=== PATIENT | male | born 1965 | race Caucasian/White ===

== ENCOUNTER 2017-01-06 05:32 | Inpatient (IN) | payer BC ==
[~2017-01-06] VITALS: Ht 182.9 cm; Wt 93.2 kg
[2017-01-06] VITALS (20 sets, daily range): BP systolic 92–125; BP diastolic 34–70; Ht 182.9 cm; Wt 93.2 kg
[2017-01-06 05:45] LABS: BASOPHILS 0.1 % (0-2); EOSINOPHILS 0.3 % (0-7); HEMATOCRIT 42.4 % (42.0-54.0); HEMOGLOBIN 13.8 g/dL (13.5-17.5); IMMATURE GRANULOCYTES 0.5 % (0-5); MCH 34.4 pg (26.0-34.0); MCHC 32.5 g/dL (31.0-37.0); MCV 105.7 fL (80.0-100.0); MEAN PLATELET VOLUME 9.4 fL (7.4-10.4); NEUTROPHILS 81.1 % (40-80); PLATELET COUNT 200 10x3/uL (130-400); RBC 4.01 10x6/uL (4.20-6.10); RDW 14.1 % (11.5-14.5); WBC 18.2 10x3/uL (4.8-10.8)
[2017-01-06 05:55] LABS: INR 1.14 (0.85-1.17); PROTIME 14.3 SECONDS (11.6-15.0)
[2017-01-06 05:56] LABS: ANION GAP 9.9 mmol/L (8-16); BILIRUBIN - TOTAL 0.75 mg/dL (0.2-1.3); CALCIUM 8.5 mg/dL (8.5-10.1); CARBON DIOXIDE 33.6 mmol/L (21.0-32.0); CREATININE - SERUM 2.4 mg/dL (0.6-1.3); POTASSIUM - SERUM 5.5 mmol/L (3.5-5.1); PROTEIN - SERUM 6.2 g/dL (6.4-8.2)
--- NOTE | 2017-01-06 07:56 | NUR ---
AROUND 733, BEFORE MOVING PATIENT OR BED, RIGHT GROIN DRESSING BLEEDING NOTED, HEMATOMA BEGAN TO FORM, PRESSURE HELD, DR CHOWDHURY CALLED BACK TO ROOM. REPREP RIGHT GROIN WITH CHLORAPREP X2 BY LAMIN FREDERICK, REDRAPED, BRENDON REMOVED.
--- NOTE | 2017-01-06 08:17 | NUR ---
2ND COUNT LAPS, NEEDLES BLADES, GUILLERMO ARIAS ANGELA RN WILSON, BRUCE COUNTS CORRECT.
--- NOTE | 2017-01-06 09:00 | NUR ---
0845 PT ARRIVED TO ROOM VIA BED. AT SIDE. PT AROUSES TO VOICE. ON 10L SIMPLE MASK. 100% O2. RESP 12. BP 111/66, HR 62. TEMP 34.2 VIA WILSON. WARMING BLANKET PLACED ON PATIENT. BILATERAL PEDAL PULSES VIA DOPPLER. BILATERAL GROIN DRESSINGS INTACT. CLEAN AND DRY. TISSUE SOFT. CRITICORE WILSON CATHETER. CVP 8
--- NOTE | 2017-01-06 09:10 | NUR ---
DR CHOWDHURY IN TO CHECK ON PATIENT. SPEAKING WITH AT THIS TIME. SHE ASKED TO BE ABLE TO STAY IN ROOM WITH PATIENT. DR CHOWDHURY SAID "NO"
[2017-01-06] MEDS ORDERED: TEMAZEPAM30 MG PO (09:21)
[2017-01-06] MEDS ORDERED: AMBIEN10 MG PO (09:21)
[2017-01-06] MEDS ORDERED: XANAX1 MG PO (09:21)
[2017-01-06 09:30] LABS: APTT 23.2 SECONDS (22.8-39.4)
[2017-01-06 09:35] LABS: HEMATOCRIT 35.9 % (42.0-54.0); HEMOGLOBIN 11.9 g/dL (13.5-17.5)
--- NOTE | 2017-01-06 10:16 | NUR ---
PT WAKING AND MORE CONVERSANT. ASKING WHERE HE IS AND WHY HE IS HERE. C/O PAIN IN GROIN SITES. PT NOW ON 2L O2 AND SATS 100%. VSS
--- NOTE | 2017-01-06 10:27 | NUR ---
PT DOES NOT HAVE PCP. SEES JB SAAVEDRA AT [facility].
[2017-01-06 11:18] LABS: UDS - AMPHET POSITIVE QUAL (NEGATIVE); UDS - BARB NEGATIVE QUAL (NEGATIVE); UDS - BENZO POSITIVE QUAL (NEGATIVE); UDS - COCAINE NEGATIVE QUAL (NEGATIVE); UDS - METH NEGATIVE QUAL (NEGATIVE); UDS - OPIATE NEGATIVE QUAL (NEGATIVE); UDS - PCP NEGATIVE QUAL (NEGATIVE); UDS - THC NEGATIVE QUAL (NEGATIVE)
--- NOTE | 2017-01-06 11:46 | NUR ---
SPOKE WITH DR. MARIA OVER THE TELEPHONE REGARDING CONSULT. HE IS AWARE AND WILL ROUND LATER TODAY.
--- NOTE | 2017-01-06 12:05 | NUR ---
AT BEDSIDE. PT IS AWAKE AT THIS TIME. HAD BEEN SLEEPING. AWAKENED TO HER PRESENCE. HE WAS AWARE SHE HAD BEEN HERE EARLIER AND KNEW SHE WOULD BE COMING AT NOON VISITATION. WAS LOOKING FORWARD TO HER ARRIVAL. HE HAS BEEN SLEEPING ON AND OFF ALL MORNING.
--- NOTE | 2017-01-06 12:25 | NUR ---
PT BECOMING AGITATED AND CUSSING. WANTS HIS TO BE ABLE TO STAY WITH HIM AND NOT FOLLOW VISITATION HOURS. ASKED FOR PHONE TO CALL ANTONI IVIS. NO PHONE IN ROOM. DENIES HAVING PHONE WITH HER. HE IS ALSO UPSET THE JB SAAVEDRA CANNOT COME BACK TO VISIT HIM.
--- NOTE | 2017-01-06 12:34 | NUR ---
BILATERAL GROIN SITES DRESSINGS INTACT. NO BLEEDING, NO HEMATOMA. BILATERAL PEDAL PULSES ARE PALPABLE AT THIS TIME. LEFT SIDE BOUNDING, RIGHT SIDE WEAK.
--- NOTE | 2017-01-06 12:57 | NUR ---
DR MARIA IN TO SEE PATIENT
[2017-01-06 14:12] LABS: BASOPHILS 0.1 % (0-2); EOSINOPHILS 0 % (0-7); HEMATOCRIT 33.2 % (42.0-54.0); HEMOGLOBIN 10.9 g/dL (13.5-17.5); IMMATURE GRANULOCYTES 0.4 % (0-5); LYMPHOCYTES 8.7 % (15-50); MCH 32.8 pg (26.0-34.0); MCHC 32.8 g/dL (31.0-37.0); MEAN PLATELET VOLUME 9.4 fL (7.4-10.4); NEUTROPHILS 81.8 % (40-80); RBC 3.32 10x6/uL (4.20-6.10); RDW 18.2 % (11.5-14.5); WBC 19.1 10x3/uL (4.8-10.8)
--- NOTE | 2017-01-06 14:14 | HP ---
PATIENT: MADELIN LARES MEDICAL RECORD: [id number] ACCOUNT: [id number] LOCATION:[facility] D.CV04 : 65 ADMISSION DATE: 01/06/17 HISTORY AND PHYSICAL EXAMINATION DATE OF ADMISSION: 01/06/2017 ADMITTING PHYSICIAN: Tim Chowdhury MD CHIEF COMPLAINT: Self-inflicted femoral stab wounds. HISTORY OF PRESENT ILLNESS: A 51-year-old male who was brought emergently to the ER morning by EMS. He by report had bilateral inflicted femoral stab wounds. He called a friend around 4:30 this morning who arrived at his apartment and found him lethargic and called 911. He was brought to the Emergency Room. Pressure was held and he was started on massive transfusion protocol. At this time, he was taken emergently to the operating room. PAST MEDICAL HISTORY: Unknown. PAST SURGICAL HISTORY: Unknown. ALLERGIES: Unknown. MEDICATIONS: Unknown. FAMILY AND SOCIAL HISTORY: Both unknown. REVIEW OF SYSTEMS: A 12-point review of systems was unobtainable secondary to the patient's responsiveness. PHYSICAL EXAMINATION: GENERAL: He was markedly hypotensive. CONSTITUTIONAL: Marked distress, he only able to moan. EYES: Extraocular muscles were intact. EARS, NOSE AND THROAT: Normal dentition. Conjunctivae are pale. Mucous membranes dry. CARDIOVASCULAR: Normal sinus rhythm. PULMONARY: Clear to auscultation bilaterally. ABDOMEN: Soft, nontender and nondistended. SKIN: Cool and flushed. EXTREMITIES: He has palpable femoral, popliteal and dorsalis pedis is on the left lower extremity. Right lower extremity has dopplerable signals at the posterior tibial and dorsalis pedis on the right as well as popliteal, open bleeding wounds of the bilateral groins. LABORATORY DATA: Obtained during the physical examination. IMPRESSION: A 51-year-old male in hemorrhagic shock with bilateral self-inflicted femoral groin wounds. PLAN: 1. Massive transfusion protocol. 2. Admit to ICU. 3. Emergent OR exploration and repair of femoral vessels, IV fluid HISTORY AND PHYSICAL [id number] MADELIN LARES PRABHJOT resuscitation, IV narcotics for pain control. TRANSINT:[id number] Voice Confirmation ID: [id number] DOCUMENT ID: [id number] TIM CHOWDHURY MD at 1414 CC: [id number] DICTATION DATE: 01/06/17 0840 TRUER PINION AND WHEEL: 01/06/17 1222 ADM IN [facility] [address] [id number]
[2017-01-06 14:20] LABS: PLATELET COUNT 147 10x3/uL (130-400)
[2017-01-06 14:25] LABS: ANION GAP 5.9 mmol/L (8-16); CARBON DIOXIDE 30.5 mmol/L (21.0-32.0); CREATININE - SERUM 1.7 mg/dL (0.6-1.3); MAGNESIUM - SERUM 1.8 mg/dL (1.8-2.4); POTASSIUM - SERUM 4.4 mmol/L (3.5-5.1)
[2017-01-06 14:27] LABS: CALCIUM 6.7 mg/dL (8.5-10.1)
--- NOTE | 2017-01-06 14:45 | NUR ---
SPOKE WITH DR CHOWDHURY. IN PREVIOUS CONVERSATION HE ASKED PT TO KEEP WILSON FOR 24 HOURS DUE TO ADELA. 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 WE DO NOT HAVE ANY ON SITE. DR CHOWDHURY ASKED FOR NORCO 5MG Q4PRN. CUT FLUID RATE FROM 125ML/HR TO 60ML/HR. PT CA 6.7, ASKS FOR 2G CALCIUM GLUCONATE TO BE ORDERED.
--- NOTE | 2017-01-06 15:09 | NUR ---
PT AWAKE, CONVERSANT. APPROPRIATE. AT BEDSIDE. PT HAS C/O NUMBNESS IN LEFT HAND. MASSAGING. VSS.
--- NOTE | 2017-01-06 17:24 | NUR ---
DR CAPPS CAME BY TO CHECK ON PT. PALPATED PEDAL PULSES. SAID HE IS ON-CALL TONIGHT IF ANYTHING IS NEEDED.
--- NOTE | 2017-01-06 17:31 | NUR ---
JB SAAVEDRA IN TO SEE PATIENT.
--- NOTE | 2017-01-06 18:00 | NUR ---
DR CHOWDHURY BY TO CHECK ON PATIENT. SPOKE WITH HIM AND .
--- NOTE | 2017-01-06 18:03 | NUR ---
AT BEDSIDE FOR VISITATION. PT IS AWAKE AND SPEAKING WITH JB AND HIS .
--- NOTE | 2017-01-06 19:00 | NUR ---
REPORT RECEIVED AND ASSESSMENT COMPLETED. SEE FLOWSHEET FOR FULL DETAILS. VSS. WILL MONITOR THROUGHOUT SHIFT.
[2017-01-06 20:21] LABS: BASOPHILS 0 % (0-2); EOSINOPHILS 0.1 % (0-7); HEMATOCRIT 30.8 % (42.0-54.0); HEMOGLOBIN 10.3 g/dL (13.5-17.5); IMMATURE GRANULOCYTES 0.4 % (0-5); LYMPHOCYTES 9.6 % (15-50); MCH 33.2 pg (26.0-34.0); MCHC 33.4 g/dL (31.0-37.0); MCV 99.4 fL (80.0-100.0); MEAN PLATELET VOLUME 9.1 fL (7.4-10.4); MONOCYTES 9.1 % (2-11); NEUTROPHILS 80.8 % (40-80); PLATELET COUNT 138 10x3/uL (130-400); RDW 18.2 % (11.5-14.5); WBC 14.9 10x3/uL (4.8-10.8)
[2017-01-06 20:32] LABS: ANION GAP 5.8 mmol/L (8-16); CALCIUM 7.3 mg/dL (8.5-10.1); CARBON DIOXIDE 32.3 mmol/L (21.0-32.0); CREATININE - SERUM 1.8 mg/dL (0.6-1.3); MAGNESIUM - SERUM 1.5 mg/dL (1.8-2.4); POTASSIUM - SERUM 4.1 mmol/L (3.5-5.1)
--- NOTE | 2017-01-06 21:00 | NUR ---
PT TEMPERATURE STILL INCREASING. NOW AT 39.4 C. BLANKETS REMOVED AND TYLENOL GIVEN. NO OTHER CHANGES AT THIS TIME. VSS. WILL CONTINUE TO MONITOR
--- NOTE | 2017-01-06 21:00 | NUR ---
TYLENOL PROVIDED TO PATIENT. NO OTHER CHANGES AT THIS TIME. VSS. WILL OCNTINUE TO MONITOR
--- NOTE | 2017-01-06 23:00 | NUR ---
REASSESSMENT COMPLETED. SEE FLOWSHEET FOR FULL DETAILS. PT TEMP SLOWLY DECREASING. NOW AT 39.1 C. HR HAS SLOWED TO 94. ALL OTHER VITAL SIGNS STABLE. NO SIGNS OF BLEEDING. ALL DRESSINGS INTACT AND CLEAN. WILL CONTINUE TO MONITOR.
[2017-01-07] VITALS (14 sets, daily range): BP systolic 94–128; BP diastolic 42–58
--- NOTE | 2017-01-07 01:00 | NUR ---
pt temp down to 38.9 C. NO OTHER CHANGES. WILL MONITOR
[2017-01-07 02:20] LABS: HEMATOCRIT 30.7 % (42.0-54.0); HEMOGLOBIN 10.2 g/dL (13.5-17.5); MCH 33.3 pg (26.0-34.0); MCHC 33.2 g/dL (31.0-37.0); MCV 100.3 fL (80.0-100.0); MEAN PLATELET VOLUME 9.4 fL (7.4-10.4); PLATELET COUNT 141 10x3/uL (130-400); RBC 3.06 10x6/uL (4.20-6.10); RDW 18.2 % (11.5-14.5); WBC 20.3 10x3/uL (4.8-10.8)
[2017-01-07 02:26] LABS: ANION GAP 5.9 mmol/L (8-16); CALCIUM 7.3 mg/dL (8.5-10.1); CARBON DIOXIDE 33.1 mmol/L (21.0-32.0); CREATININE - SERUM 1.7 mg/dL (0.6-1.3); MAGNESIUM - SERUM 1.6 mg/dL (1.8-2.4)
--- NOTE | 2017-01-07 03:00 | NUR ---
REASSESSMENT COMPLETED. SEE FLOWSHEET FOR FULL DETAILS. PT HAS BRUISING ON RIGHT GROIN. MARKED WITH SHARPIE. WILL MONITOR FOR SIGNS OF BLEEDING. VSS.
[2017-01-07 04:08] LABS: LYMPHOCYTES 8 % (15-50); MONOCYTES 5 % (2-11); NEUTROPHILS 81 % (40-80); PLATELET ESTIMATE NORMAL
--- NOTE | 2017-01-07 05:09 | NUR ---
NO CHANGES IN STATUS AT THIS TIME. PT TEMP SLOWLY DECREASING. BRUISING HAS NOT INCREASED IN SIZE AT THIS TIME. VSS. WILL MONITOR.
--- NOTE | 2017-01-07 07:30 | NUR ---
Lab drawn for 0730 testing. Central line brown port draws well. Line flushed, Ancef started as ordered. Respiratory treatment in progress. VSS
[2017-01-07 07:42] LABS: BASOPHILS 0.1 % (0-2); EOSINOPHILS 0.2 % (0-7); HEMATOCRIT 28.1 % (42.0-54.0); HEMOGLOBIN 9.5 g/dL (13.5-17.5); IMMATURE GRANULOCYTES 0.4 % (0-5); MCH 33.9 pg (26.0-34.0); MCHC 33.8 g/dL (31.0-37.0); MCV 100.4 fL (80.0-100.0); MONOCYTES 9.3 % (2-11); RDW 17.9 % (11.5-14.5); WBC 18.8 10x3/uL (4.8-10.8)
--- NOTE | 2017-01-07 07:45 | NUR ---
Emanuel Morales stopped by to check on patient. Pt sleeping, did not wake. Update provided.
[2017-01-07 07:46] LABS: PLATELET COUNT 111 10x3/uL (130-400)
[2017-01-07 07:57] LABS: ANION GAP 7.1 mmol/L (8-16); CALCIUM 7.1 mg/dL (8.5-10.1); CARBON DIOXIDE 31.8 mmol/L (21.0-32.0); CREATININE - SERUM 1.6 mg/dL (0.6-1.3); MAGNESIUM - SERUM 1.7 mg/dL (1.8-2.4); POTASSIUM - SERUM 3.9 mmol/L (3.5-5.1)
--- NOTE | 2017-01-07 08:00 | OP ---
PATIENT NAME: MADELIN LARES MEDICAL RECORD: [id number] :65 LOCATION:[facility] D.CV04 ADMISSION DATE:01/06/17 SURGEON: TIM CHOWDHURY MD DATE OF OPERATION: 01/06/2017 SURGEON: Dr. Tim Chowdhury. PROCEDURES PERFORMED: 1. Bilateral femoral artery and vein exploration. 2. Right femoral artery repair. 3. Right femoral vein repair. PREOPERATIVE DIAGNOSIS: Bilateral self-inflicted femoral stab wounds. POSTOPERATIVE DIAGNOSIS: Bilateral self-inflicted femoral stab wounds. DESCRIPTION OF THE PROCEDURE: Emergent consent was obtained, the patient was taken emergently to the operating room. The bilateral groins were prepped and draped in typical sterile fashion. Pressure was held along the left groin. The stab wound was opened. The stab wound incision was extended with a 15 blade scalpel. Self-retaining retractors were placed. Soft tissue and fascia was dissected with electrocautery. The femoral vein and femoral artery were dissected. There is a superficial femoral vein injury, as well as a superficial femoral artery injury. Both the proximal artery and vein were isolated, dissected out and vessel loops were placed for proximal control. Again, this was done on the deep profunda and superficial femoral artery were dissected out. Vascular clamps were used for vascular control, this was repeated on the superficial vein for control. The artery had an anterior penetrating wound at the confluence of the common femoral and deep profunda, this was repaired with 3 interrupted xpjghl-rk-[id number] 5-0 Prolene sutures. No further evidence of bleeding. The superficial femoral vein was repaired using 6-0 Prolene sutures in a jjmson-dw-elzjx fashion. The wound was copiously irrigated and suctioned. There was no further evidence of bleeding. Several clips were placed on smaller accessory arteries and veins to control oozing. Surgicel and Simran were applied in the wound bed for hemostasis. The wound was closed in multiple layers. The deep fascia was closed with 0 Vicryl sutures, superficial fascia with 3-0 Vicryl suture. Skin was closed with esther. At this time, the left groin wound again was extended using a 15 blade scalpel. The soft tissue was dissected, all bleeding was controlled with combination of electrocautery and clips application. There was no femoral artery or femoral vein injury in the left side. The wound was closed again in 3 layers. Deep fascia was closed with 2-0 Vicryl sutures, superficial fascia with 3-0 Vicryl sutures, skin with esther. At the end of the case, all needle and sponge counts were correct. No complications occurred. The patient was transferred to the ICU in stable condition. TRANSINT:[id number] Voice Confirmation ID: [id number] DOCUMENT ID: [id number] OPERATIVE REPORT [id number] MADELIN LARES,TIM Cottrell MD at 0800 CC: [id number] DICTATION DATE: 01/06/17 0844 WORKERS COMPENSATION CLAIMS ASSISTANT: 01/06/17 1829 ADM IN [facility] [address] [place] [address]
--- NOTE | 2017-01-07 09:16 | NUR ---
Kimball catheter removed, tip intact. Dr. Godoy has been in to see patient. Can remove telemetry, check vitals Q4 hours. Pt up to chair and toileting. To remove dressings at groin sites tomorrow. Continue to monitor H&H.
--- NOTE | 2017-01-07 09:30 | NUR ---
at bedside. Assisting pt with bathing and shaving. Fresh linens provided.
--- NOTE | 2017-01-07 11:13 | NUR ---
Pt assisted up to toilet. 400ml urine out. Spoke to patient regarding harm to self. Says will not do anything to harm himself. Let him know that instead of sitting next to his bedside that I would be at work station right outside his room. If he needs anything at all to let me know. Vitals monitoring equipment has been removed from room and will be taken in every 4 hours to check vitals. Pt is quit, calm and cooperative.
--- NOTE | 2017-01-07 11:18 | NUR ---
A phone call was received from Lauryn in radiology asking about patient. Told her I could not release any information. She said there was a visitor there asking for him. Let her know that she could tell the person to contact his for any information. Surgical staff stopped by after dropping off a patient. Did not let them in the room, told them no visitors at this time. Spoke with patient after and let him know that we are trying to protect his privacy, and are at this time only his , Emanuel, and Naz have been allowed to come to see him. If there are any staff that he wanted visits from he could let me know, otherwise I will turn all visitors away.
--- NOTE | 2017-01-07 11:36 | NUR ---
Pt has asked for [employer] puzzle. Have attempted to find on internet, not able to access. Professor Of Apologetics called; will look in gift shop for puzzle book.
[2017-01-07 13:36] LABS: BASOPHILS 0.1 % (0-2); EOSINOPHILS 0.3 % (0-7); HEMOGLOBIN 9.6 g/dL (13.5-17.5); IMMATURE GRANULOCYTES 0.6 % (0-5); LYMPHOCYTES 8.3 % (15-50); MCH 33.6 pg (26.0-34.0); MCHC 33.1 g/dL (31.0-37.0); MCV 101.4 fL (80.0-100.0); MEAN PLATELET VOLUME 9.5 fL (7.4-10.4); MONOCYTES 9.3 % (2-11); NEUTROPHILS 81.4 % (40-80); PLATELET COUNT 130 10x3/uL (130-400); RBC 2.86 10x6/uL (4.20-6.10); RDW 17.3 % (11.5-14.5); WBC 19.6 10x3/uL (4.8-10.8)
[2017-01-07 13:41] LABS: ANION GAP 6.8 mmol/L (8-16); CALCIUM 7.4 mg/dL (8.5-10.1); CARBON DIOXIDE 32.8 mmol/L (21.0-32.0); CREATININE - SERUM 1.7 mg/dL (0.6-1.3); MAGNESIUM - SERUM 1.7 mg/dL (1.8-2.4); POTASSIUM - SERUM 3.6 mmol/L (3.5-5.1)
--- NOTE | 2017-01-07 14:14 | NUR ---
Pt and have asked about daughter (12 y/o) coming for visitation. Spoke with Xiao in administration. Is ok for daughter to come for short visit as long as it doesn't upset pt.
--- NOTE | 2017-01-07 14:38 | NUR ---
Pt CVL dressing changed. No redness or signs of infection noted. Dated 01/07/17 and initials.
--- NOTE | 2017-01-07 15:25 | NUR ---
and daughter at bedside at this time.
--- NOTE | 2017-01-07 16:20 | NUR ---
Mumtaz with case management in to see patient.
--- NOTE | 2017-01-07 17:02 | NUR ---
Pt having numbness intermittently bilateral hands primarily in first 3 digits. Says has had issues with carpal tunnel, but not to this extent.
--- NOTE | 2017-01-07 17:16 | NUR ---
Pt sleeping at this time. No distress noted.
--- NOTE | 2017-01-07 17:34 | NUR ---
Patient Name: MADELIN LARES Admission Status: ER Accout number: [id number] Admission Date: 01-06-2017 : 1965 Admission Diagnosis:MINOR LACERATION OF FEMORAL ARTERY, RIGHT LEG, INIT ENC Attending: MOO Current LOS: 1 Anticipated DC Date: TO BE DETERMINED Planned Disposition: Inpatient Psych Facility Primary Insurance: [employer] [place] [employer] EMP PLANNED EXTERNAL PROVIDER: TO BE DETERMINED Discharge Planning Comments: * Is the patient Alert and Oriented? Yes 0 * How many steps to enter\exit or inside your home? 2-3 0 * PCP BRICK SIDING APPLICATOR [facility] OR DR. GAMAL JO 0 * Pharmacy [facility] 0 * Preadmission Environment Home with Family 0 * ADLs Independent 0 * Equipment None 0 * Other Equipment [facility] MEDICAL EQUIPMENT PROVIDER PREFERENCE 0 * List name and contact numbers for known caregivers / representatives who currently or will assist patient after discharge: JONAH LARES, SPOUSE, 0 * Community resources currently utilized None 0 * Please name any agencies selected above. NONE 0 * Additional services required to return to the preadmission environment? Yes * Can the patient safely return to the preadmission environment? Yes 0 * Has this patient been hospitalized within the prior 30 days at any hospital? No 0 CM SPOKE TO PT IN ROOM REGARDING DISCHARGE PLANNING NEEDS. PT UNDERSTANDS DR. RAYMUNDO RECOMMENDATIONS FOR INPATIENT PSYCHIATRIC STABALIZATION; PT IS CONCERNED ABOUT BEING OUT OF THE HOSPITAL IN ORDER TO GO TO HIS DAUGHTER'S GRADUATION. CM EXPLAINED TYPICAL ACUTE STAY IN PSYCHIATRIC HOSPITAL IS 3 TO 7 DAYS, COULD BE MORE DEPENDING ON PT'S NEEDS. PT REPORTS WILLINGNESS FOR INPATIENT PSYCHIATRIC CARE, DISCUSSED POSSIBILITY OF HOSPITALIZATION IN [place] ([facility]), [place] ([facility]), OR [facility]). PT ASKED CM TO SPEAK TO [employer] IN [employer] TO SEE WHAT INSURANCE WILL COVER. CM NOTED THAT ANY FACILITY TO FACILITY TRANSFER WOULD HAVE TO BE BY EMERGENCY MEDICAL TRANSPORTATION. CM SPOKE TO [employer] IN [employer]; ANY FACILITY OUTSIDE [facility] THAT ACCEPTS [employer] WOULD BE IN NETWORK FOR DOCTOR BUT OUT OF NETWORK FOR FACILITY AND SERVICES. AD[facility]N PROVIDED [facility] PAPERWORK AND REQUEST FOR COPAY REDUCTION TO PROVIDE TO PT FOR HIS USE IF NEEDED. CM CALLED [facility] IN [place], , SPOKE TO KANWAL, THEY ARE IN NETWORK WITH [employer] AND ADVISED THAT IF PLACEMENT IS NEEDED, PLEASE CALL EARLY POSSIBLE BED AVAILABILITY IN THE FACILITY CAN BE VERY LIMITED. CM TO DISCUSS OPTIONS AND PROVIDE HUMAN RESOURCES FORMS TO PT IN THE MORNING, 517 AND CONTINUE SEEKING INPATIENT PSYCHIATRIC CARE. Industrial Engineering Professor: Tom No
--- NOTE | 2017-01-07 17:39 | NUR ---
Mumtaz with case management back in to see patient.
--- NOTE | 2017-01-07 17:49 | NUR ---
Pt up ambulating in room. Gait steady.
--- NOTE | 2017-01-07 18:06 | NUR ---
Pt in chair at this time quietly working in puzzle book provided to him earlier in the shift. Pt has been cooperative duration of shift. Compliant with medication administrations.
--- NOTE | 2017-01-07 18:30 | NUR ---
No visitors for 6pm visitation
--- NOTE | 2017-01-07 18:50 | NUR ---
Dr Liu as well as pt in to see him. Dr Negron here to provide emotional as well as rastafarian support to pt. Praying with pt and at this time.
--- NOTE | 2017-01-07 19:00 | NUR ---
REPORT RECEIVED AND ASSESSMENT COMPLETED. SEE FLOWSHEET FOR FULL DETAILS. FAMILY AT BEDSIDE. WILL MONITOR CLOSELY THROUGHOUT SHIFT
[2017-01-07 19:44] LABS: BASOPHILS 0.1 % (0-2); EOSINOPHILS 0.5 % (0-7); HEMATOCRIT 28.3 % (42.0-54.0); HEMOGLOBIN 9.3 g/dL (13.5-17.5); IMMATURE GRANULOCYTES 0.4 % (0-5); MCH 33.2 pg (26.0-34.0); MCHC 32.9 g/dL (31.0-37.0); MCV 101.1 fL (80.0-100.0); MEAN PLATELET VOLUME 9.4 fL (7.4-10.4); MONOCYTES 10.3 % (2-11); NEUTROPHILS 79.7 % (40-80); PLATELET COUNT 124 10x3/uL (130-400); RDW 16.9 % (11.5-14.5); WBC 16.9 10x3/uL (4.8-10.8)
[2017-01-07 20:01] LABS: ANION GAP 7.6 mmol/L (8-16); CALCIUM 7.5 mg/dL (8.5-10.1); CARBON DIOXIDE 32.8 mmol/L (21.0-32.0); CREATININE - SERUM 1.4 mg/dL (0.6-1.3); MAGNESIUM - SERUM 1.8 mg/dL (1.8-2.4); POTASSIUM - SERUM 3.4 mmol/L (3.5-5.1)
--- NOTE | 2017-01-07 21:00 | NUR ---
VISITOR PRESENT. NO CHANGES IN STATUS AT THIS TIME. VSS. WILL CONTINUE TO MONITOR
--- NOTE | 2017-01-07 23:00 | NUR ---
EASSESSMENT COMPLETED. SEE FLOWSHEET FOR FULL DETAILS.
--- NOTE | 2017-01-08 01:00 | NUR ---
NO CHANGES IN STATUS AT THIS TIME. VSS. WILL MONITOR.
[2017-01-08 03:00] VITALS: BP 110/58
--- NOTE | 2017-01-08 03:00 | NUR ---
REASSESSMENT COMPLETED. NO CHANGE IN STATUS AT THIS TIME. VSS. WILL CONTINUE TO MONITOR.
--- NOTE | 2017-01-08 05:00 | NUR ---
NO CHANGE IN STATUS AT THIS TIME. PT QUIET AND WITHDRAWN. VSS. WILL CONTINUE TO MONITOR CLOSELY.
[2017-01-08 05:32] LABS: BASOPHILS 0 % (0-2); EOSINOPHILS 0.5 % (0-7); HEMATOCRIT 28.6 % (42.0-54.0); HEMOGLOBIN 9.5 g/dL (13.5-17.5); IMMATURE GRANULOCYTES 0.3 % (0-5); MCH 33.5 pg (26.0-34.0); MCHC 33.2 g/dL (31.0-37.0); MCV 100.7 fL (80.0-100.0); MEAN PLATELET VOLUME 9.5 fL (7.4-10.4); MONOCYTES 11.2 % (2-11); PLATELET COUNT 126 10x3/uL (130-400); RBC 2.84 10x6/uL (4.20-6.10); RDW 16.4 % (11.5-14.5); WBC 16.9 10x3/uL (4.8-10.8)
[2017-01-08 05:40] LABS: ANION GAP 5.1 mmol/L (8-16); CALCIUM 7.7 mg/dL (8.5-10.1); CARBON DIOXIDE 34.7 mmol/L (21.0-32.0); CREATININE - SERUM 1.3 mg/dL (0.6-1.3); MAGNESIUM - SERUM 1.8 mg/dL (1.8-2.4); POTASSIUM - SERUM 3.8 mmol/L (3.5-5.1)
[2017-01-08 07:00] VITALS: BP 125/53
--- NOTE | 2017-01-08 07:30 | NUR ---
Pt awake, conversant. Pleasant. Shift assessment has been completed. see flow sheet for details. Breakfast tray has been provided. Sitting in chair at bedside eating. Pt was stiff and slow rising from bed. Asked if he was hurting. He acknowledges being in pain. Offered pain medication to him. Was hesitant at first, but accepted offer.
--- NOTE | 2017-01-08 09:09 | NUR ---
Dr Godoy in to see patient. Removed dressings from inicision sites and inspected.
--- NOTE | 2017-01-08 09:56 | NUR ---
has been in to see patient. Is going to administration to talk to them about patient going home with her. She does not feel is suicidal at this time and will not be a threat to himself.
--- NOTE | 2017-01-08 10:28 | NUR ---
Pt has orders for D/C of central line, still on IV antibiotics. No oral abx ordered. Paged Dr Godoy and asked if patient needs to be started on one. He will put in an order.
--- NOTE | 2017-01-08 10:35 | NUR ---
Nutrition Follow Up: Chart reviewed. Pt is eating 50% meal avg on a regular diet. I<O. No BM since admit. Wt stable. Meds and labs reviewed. Pt with fair po intake at this time. Rec continue current diet. RD will continue to monitor pt progress.
--- NOTE | 2017-01-08 10:57 | NUR ---
bathing patient at this time. While bathing found a small tick attached to patient. Tick was pulled with tweezers, head appears to be intact to tick body. Attachment site then swabbed with iodine and tick disposed of.
[2017-01-08 11:00] VITALS: BP 127/57
--- NOTE | 2017-01-08 12:14 | NUR ---
Pt up to toilet. Dr. Christiansen has been in to speak to patient, is now speaking with , Evangelina.
--- NOTE | 2017-01-08 12:20 | NUR ---
oRz Palma at bedside with NO HARM AGREEMENT. Contract was read aloud to patient. He verbalized understanding of contract and repeated back to Howard Palma RN and myself that agreed not to harm himself while he remained in our care. Contract was signed by patient and witnessed by Howard Palma RN, and Nydia Michele RN. Contract was also presented to, agreed to upon, and signed by Dr. MARCO Godoy
--- NOTE | 2017-01-08 14:06 | NUR ---
Patient Name: MADELIN LARES Encounter No: [id number] : 1965 Primary Insurance: [employer] HAND EMP Anticipated DC Date: 01-08-2017 Planned Disposition: Inpatient Psych Facility External Planned Provider: [facility] DCP follow-up note: CM INFORMED BY NURSE THAT PT IS READY FOR INPATIENT PSYCHIATRIC CARE PLACEMENT. CM MET WITH PT IN ROOM, PT REPORTS WILLINGNESS FOR TRANSFER TO ANY PLACE ON THE LIST THAT WAS PROVIDED TO HIM BY THE DOCTOR, STATES THAT THE TOP PICKS HAVE BEEN CIRCLED. CM SPOKE TO DR. CHOWDHURY WHO PROVIDED CONTACT NUMBER FOR ANY NEEDED PHYSICIAN CONTACT FOR TRANSFER ARRANGEMENTS. CM CALLED [employer] [facility]AL [facility]CELL[facility] IN [place], [place], ; SPOKE TO GISELA WHO REPORTS BEING OUT OF NETWORK FOR [employer], REFERRED PT TO [facility] IN [place] AND SHE WILL CONTACT DR. LISA CERVANTES AND HAVE HIM CONTACT CM. CM CALLED [employer], , SPOKE TO STEPHANIA WHO REPORTS THAT HE NEEDS A FACE SHEET FOR PREAUTHORIZATION FROM INSURANCE AND HE WILL CHECK WEATHER AND BEGIN ARRANGEMENTS. CM EXPLAINED CONFIDENTIAL NATURE OF PATIENT, THAT PT HAS NOT YET BEEN ACCEPTED; STEPHANIA REPORTS THAT THEY CAN FLY ANYWHERE IN THE AND CAN CHANGE DESITINATION WITH INSURANCE IF NEEDED. CM FAXED FACE SHEET TO [employer] AT [phone]. CM WAITING RETURN CALL FROM DR. LISA CERVANTES OF [facility] IN [place] . Tom No, CASE MANAGEMENT
--- NOTE | 2017-01-08 14:29 | NUR ---
Central line dressing at left subclavian removed, tip intact. No bleeding. Site covered with gauze and tegaderm.
--- NOTE | 2017-01-08 14:35 | NUR ---
at bedside, brought pt food for lunch.
[2017-01-08 16:00] VITALS: BP 134/56
--- NOTE | 2017-01-08 16:19 | NUR ---
Dr Walls by to see patient and sign for authorization to receive medical transport.
--- NOTE | 2017-01-08 17:01 | NUR ---
Pt sitting up in chair at window with dinner tray. Dr Bunch in room at this time.
--- NOTE | 2017-01-08 17:05 | NUR ---
Patient Name: MADELIN LARES Encounter No: [id number] : 1965 Primary Insurance: [employer] YAZAN EMP Anticipated DC Date: 01-09-2017 Planned Disposition: Inpatient Psych Facility External Planned Provider: [facility], [address] [place] [address]. [id number] [facility] follow-up note: DALILA RECEIVED CALL FROM NAOMY OF [employer] WHO REQUESTED CLINICAL DOCUMENTATION AND MEDICAL STATEMENT OF NECESSITY FOR TRANSPORT AND ASKED FOR DOCUMENTION FOR INSURANCE TO WHY NO LOCAL FACILITY COULD MEET TREATMENT NEEDS. CM REVIEWED PHYSICIAN NOTES THAT INDICATE PT NEEDS TREATMENT OUTSIDE [facility]. DALILA HAD PREVIOUSLY SPOKEN TO GISELA LLOYD OF [facility] WHO INFORMED DALILA THAT THE PROGRAM SPECIALIZES IN TREATMENT OF PHYSICIANS. DALILA CALLED AND SPOKE TO DR. CHOWDHURY WHO REFERRED CM TO DR OSBORNE WHO [facility] S[facility]. DALILA OBTAINED DR. DICKSON SIGNATURE, FAXED REQUESTED DOCUMENTATION TO [employer] AT [phone]. NAOMY TO MAKE ARRANGEMENTS WITH PT'S INSURANCE COMPANY FOR FLIGHT TO TREATMENT. DALILA RECEIVED CALL FROM DR. CERVANTES, DISCUSSED REFERRAL. DR. CERVANTES REPORTS HE ACCEPTS PT AND WILL CALL DR. CHOWDHURY SHORTLY. DR. CERVANTES ASKED DALILA TO FAX REFERRAL TO HIS OFFICE, AND CALL THE INTAKE ASSESSEMENT TEAM AT [phone], [facility]. CM FAXED REFERRAL REQUESTED. DALILA CALLED ASSESSMENT TEAM, PROVIDED REFERRAL TO [facility], FAXED REFERRAL TO ASSESSMENT TEAM AT [phone]. [facility] REPORTED THEY HAVE A BED AVAILABLE TOMORROW, 01-08-17 AND TO CALL BACK AT 1000 AM TOMORROW FOR INSTRUCTIONS AND BED ASSIGNMENT. DALILA CALLED [employer], , SPOKE TO STEPHANIA CANCELED AIR FLIGHT FOR TODAY AND PLACED ON SCHEDULE FOR TOMORROW AFTER 1000AM. BEDSIDE NURSE AND PATIENT NOTIFIED. CM TO CALL [facility], , [facility], AFTER 1000AM 01-09-17, TO RECEIVE BED ASSIGNMENT AND RECEIVE FURTHER INSTRUCTIONS. WHEN BED ASSIGNMENT RECEIVED ALONG WITH NUMBER FOR NURSE REPORT, CM TO CONTACT [employer], , TO COMLETE TRANSPORATION ARRANGEMENTS. Tom No, CASE MANAGEMENT
--- NOTE | 2017-01-08 17:13 | NUR ---
Called Dr Godoy and let him know that patient transport will occur tomorrow sometime after 10AM
--- NOTE | 2017-01-08 18:31 | NUR ---
and daughter at bedside for visitation.
--- NOTE | 2017-01-08 19:15 | NUR ---
REPORT RECEIVED AND CARE ASSUMED. INITAL SHIFT ASSESSMENT COMPLETED SEE FLOWSHEET. PT CLOSELY MONITORED FOR PT'S SAFETY. WAS REPORTED TO HAVE SIGNED A NO HARM AGREEMENT TODAY. AND DAUGHTER HAVE JUST LEFT FROM BEDSIDE.
[2017-01-08 19:44] VITALS: BP 115/51
--- NOTE | 2017-01-08 21:00 | NUR ---
SEVERAL FRIENDS OF PT'S VISITING AT BEDSIDE INCLUDING AND DAUGHTER. PT INTERACTING FREELY. EACH VISITOR WAS ADMITTED ONLY AFTER OBTAINING CONSENT FROM AND PATIENT.
--- NOTE | 2017-01-08 21:15 | NUR ---
TALA MUHAMMAD HER TO SEE PT
[2017-01-08 22:15] VITALS: BP 122/56
--- NOTE | 2017-01-08 22:15 | NUR ---
PT READING, LYING IN BED. HAS BEEN GIVEN RESTORIL PER HIS REQUEST. ALL VISITORS HAVE GONE AT THIS TIME. PT DENIES NEEDS/PAIN. BED IS IN DIRECT VISION OF NURSES STATION.
--- NOTE | 2017-01-08 23:00 | NUR ---
PT SLEEPING RESP ARE REG AND NONLABORED WITH LIGHT SNORING.
--- NOTE | 2017-01-09 01:00 | NUR ---
pt sleeping well. continue to monitor
--- NOTE | 2017-01-09 03:00 | NUR ---
PT STARTLED AWAKE WHEN LIGHT NOISE MADE. PT STATES HE ISNT SLEEPING WELL TONIGHT. HAS BEEN UP X 2 TO VOID. DENIES NEEDS
[2017-01-09 03:15] VITALS: BP 110/55
--- NOTE | 2017-01-09 03:47 | NUR ---
HACKLER DOLL WIGS AT BEDSIDE FOR AM LAB
[2017-01-09 03:57] LABS: BASOPHILS 0.1 % (0-2); EOSINOPHILS 0.9 % (0-7); HEMATOCRIT 28.8 % (42.0-54.0); HEMOGLOBIN 9.4 g/dL (13.5-17.5); IMMATURE GRANULOCYTES 0.4 % (0-5); LYMPHOCYTES 12.3 % (15-50); MCH 32.9 pg (26.0-34.0); MCHC 32.6 g/dL (31.0-37.0); MCV 100.7 fL (80.0-100.0); MEAN PLATELET VOLUME 9.3 fL (7.4-10.4); MONOCYTES 10.3 % (2-11); PLATELET COUNT 142 10x3/uL (130-400); RBC 2.86 10x6/uL (4.20-6.10); RDW 15.8 % (11.5-14.5); WBC 13.8 10x3/uL (4.8-10.8)
--- NOTE | 2017-01-09 05:00 | NUR ---
SLEEPING AT THIS TIME
--- NOTE | 2017-01-09 07:00 | NUR ---
Shift assessment complete. See flowsheet for details. Pt alert and conversant. Incision sites are clean and dry, sether intact.
[2017-01-09 08:00] VITALS: BP 114/48
[2017-01-09] MEDS ORDERED: AUGMENTIN 875-11 TAB PO (10:12)
[2017-01-09] MEDS ORDERED: PLAVIX75 MG PO (10:13)
[2017-01-09] MEDS ORDERED: ASPIRIN81 MG PO (10:13)
--- NOTE | 2017-01-09 10:30 | NUR ---
at bedside bathing patient and helping to ready for discharge.
[2017-01-09] MEDS ORDERED: EFFEXOR XR75 MG PO (11:14)
--- NOTE | 2017-01-09 11:24 | NUR ---
Patient Name: MADELIN LARES Encounter No: [id number] : 1965 Primary Insurance: [employer] Anticipated DC Date: 01-09-2017 Planned Disposition: Inpatient Psych Facility External Planned Provider: [facility], [address] [place] [address]. [address] [facility] follow-up note: CM RECEIVED FAX OF ALLOWABLE ITEMS AT [facility], PROVIDED TO PT AT ABOUT 0830 AM. AT APPROXIMATELY 1035, CM CALLED SJ OF [facility] AT [phone], OPTION 3. SJ REPORTED SHE WILL CALL SHORTLY. CM RECEIVED CALL AT APPROXIMATELY 1055 AM, BED AVAILABLE AND DR. CERVANTES HAS ACCEPTED. PT WILL ADMIT THROUGH THE PSYCHIATRIC ASSESSMENT SERVICE ENTRY TO THE LEFT OF THE MAIN [facility] ENTRANCE. CM CALLED [facility], , SPOKE TO STEPHANIA WHO WILL COMPLETE ARRANGEMENTS FOR GROUND AND AIR, PT TO BE PICKED UP IN APPROXIMATELY 45 MINUTES. STEPHANIA WILL CALL [facility] AND PROVIDE ESTIMATED TIME OF ARRIVAL. NURSE REPORT TO BE CALLED TO NURSE ORELLANA AT [phone]; CM FAXED DISCHARGE INFORMATION TO [facility] AT [phone]. BEDSIDE NURSE AND PATIENT NOTIFIED. Tom No, CASE MANAGEMENT
--- NOTE | 2017-01-09 12:19 | NUR ---
Report called to receiving ALIE Nguyen at [facility]. [phone]. Pt has bilateral groin incision sites that have esther and are open to air at this time. No indication of infection, minor swelling. Pt has bruising bilateral thighs. Just a few inches above right groin incision pt had tick bite. Pt has his glasses, has had bath today. Pt is concerned about his esther getting removed. Pt has continuing medication orders for ASA, Plavix, Augmentin and Effexor. List will be provided in discharge packet and was also faxed to facility by case management. Offered to call when patient leaves. She said it was not necessary. Let her know that patient is ready, we are just waiting on EMS transport at this time.
--- NOTE | 2017-01-09 13:16 | NUR ---
Pt transported via stretcher accompanied by EMS to ambulance.
== END 2017-01-09 13:18 | DRG 907 ==
LOC: D.ER 05:32 → D.ICU 06:43 → D.CVICU 06:43
PROVIDERS: Family Medicine; ADMIT Surgery
PROC: 06QM0ZZ Repair Right Femoral Vein, Open Approach (ICD-10-PCS; 2017-01-06)
PROC: 0YJ Anatomical Regions, Lower Extremities, Inspection (ICD-10-PCS; 2017-01-06)
PROC: 04QK0ZZ Repair Right Femoral Artery, Open Approach (ICD-10-PCS; principal; 2017-01-06 07:30)
DX: S75.011A Minor laceration of femoral artery, right leg, initial encounter (principal); S75.111A Minor laceration of femoral vein at hip and thigh level, right leg, initial encounter; T79.4XXA Traumatic shock, initial encounter; F33.9 Major depressive disorder, recurrent, unspecified; N17.9 Acute kidney failure, unspecified; D62 Acute posthemorrhagic anemia; S71.111A Laceration without foreign body, right thigh, initial encounter; X78.9XXA Intentional self-harm by unspecified sharp object, initial encounter; Y92.009 Unspecified place in unspecified non-institutional (private) residence as the place of occurrence of the external cause